=== PATIENT | female | born 1965 | race Caucasian/White ===

== ENCOUNTER 2018-01-22 08:15 | Observation (INO) | payer BC ==
[2018-01-22] MEDS ORDERED: Nitroglycerin 2% Ointment 1 INCH/1 GM Packet ONE (08:40)
[2018-01-22 08:58] LABS: #Basophils 0.1 thou/uL (0.0-0.2); #Eosinphils 0.1 thou/uL (0.0-0.7); #Lymphocytes 1.4 thou/uL (1.20-3.40); #Monocytes 0.6 thou/uL (0.11-0.59); #Neutrophils 4.4 thou/uL (1.40-6.50); %Eosinophils 1.9 % (0.0-10.0); %Lymphocytes 21.4 % (21.0-51.0); %Monocytes 8.7 % (0.0-10.0); %Neutrophils 67.1 % (42.0-75.0); Hemoglobin 13.3 g/dL (12.0-16.0); Mean Corpuscular Hemoglobin 30.1 pg (27.0-31.0); Mean Corpuscular Volume 85.9 fl (81.0-99.0); Platelet Count 200 thou/uL (130-400); RBC Distribution Width 11.4 % (11.5-14.5); Red Blood Cell (RBC) Count 4.41 mill/uL (4.20-5.40); White Blood Cell (WBC) Count 6.5 thou/uL (4.8-10.8)
[2018-01-22 09:02] LABS: PTT 32.6 SEC (22.9-36.1); Prothrombin Time 12.9 SEC (12.0-14.7)
[2018-01-22 09:08] LABS: ALT (SGPT) 14 U/L (8-55); AST (SGOT) 21 U/L (5-34); Albumin 4.4 g/dL (3.5-5.0); Alkaline Phosphatase 64 U/L (40-150); Anion Gap 13 mmol/L (10-20); BUN (Urea Nitrogen) 18 mg/dL (7.0-18.7); Bilirubin, Total 0.6 mg/dL (0.2-1.2); CK (CPK) 134 U/L (29-168); CKMB 1.9 ng/mL (0-6.6); Calc. Creatinine Clearance 0 mL/min (70-130); Calcium 9.7 mg/dL (7.8-10.44); Carbon Dioxide 28 mmol/L (22-29); Chloride 105 mmol/L (98-107); Estimated GFR-MDRD 67; Globulin 2.7 g/dL (2.4-3.5); Glucose 96 mg/dL (70-105); Lipase 88 U/L (8-78); Potassium 3.7 mmol/L (3.5-5.1); Protein, Total 7.1 g/dL (6.0-8.3); Sodium 142 mmol/L (136-145); Troponin I Less than 0.010 ng/mL (< 0.028)
--- NOTE | 2018-01-22 09:16 | RAD ---
CHEST ONE VIEW: History: Chest pain. Comparison: 02-03-13 FINDINGS: Cardiac silhouette and pulmonary vasculature are unremarkable. Mediastinum is midline. No lobar conso lidation or evidence of pneumothorax. compensation agent leads overlie the chest. IMPRESSION: No active cardiopulmonary abnormalities are demonstrated. POS: [facility]
[2018-01-22] MEDS ORDERED: Acetaminophen 325 MG TAB ONE (09:20)
[2018-01-22] MEDS ORDERED: Ondansetron HCl/PF 4 MG/2 ML Vial ONE (10:04)
[2018-01-22 12:13] VITALS: BMI 21.7
[2018-01-22] MEDS ORDERED: Mag-Al 1200 mg/1200 mg/30 ML UDCUP PO PRN (15:09)
[2018-01-22] MEDS ORDERED: Nitroglycerin 0.4 MG TAB (25 Tab Bottle) PO PRN (15:09)
[2018-01-22] MEDS ORDERED: Acetaminophen 325 MG TAB PO PRN (15:09)
[2018-01-22] MEDS ORDERED: Morphine 4 MG/ML VIAL SLOW IVP PRN ×2 (15:10)
--- NOTE | 2018-01-22 15:31 | HP ---
PRIMARY CARE PHYSICIAN: Dr. Mcguire. CHIEF COMPLAINT: Chest pain. HISTORY OF PRESENT ILLNESS: Ms. Favian Sher is a pleasant 52-year-old female that has a histor y of coronary artery disease. She was diagnosed with a myocardial infarction in 2011. 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 She says it was a squeezing like pain and at its worst it was a 6/10. She says it radiated into her left arm and also she was nauseated a nd was sweating. She says that she went inside and tried to sit down and rest for a minute, but it d id not get better. She told her she generally was not feeling well and in fact, she had trie d to go to work initially, but then the pain got worse and she decided that she better go to the [facility] room for evaluation. She was given nitroglycerin and morphine in the ER, which helped the pain for a while, but she says while she was waiting in the ER after about an hour or so, the pain starte d to return and she is being transferred to our facility for further evaluation. REVIEW OF SYSTEMS: Constitutional: There have been no fevers, chills, no night sweats, no weight lo ss. HEENT: There is no headache, no dizziness, no visual changes, no sore throat, rhinorrhea, neck pain, no adenopathy. Pulmonary: No hemoptysis, no cough, no wheezing. Cardiovascular: As the history of present illness. She denies any palpitations, no PND, nor orthopn ea. Gastrointestinal: No abdominal pain, but she has had some nausea, but no vomiting, no change in bowels. Genitourinary: No urinary frequency, hematuria, no hesitancy. Neurologic: No focal weakn ess, numbness, no seizures. Psychiatric: No symptoms of anxiety or depression. Skin and Integument : No skin changes. No rash. PAST MEDICAL HISTORY: Significant for coronary artery disease. PAST SURGICAL HISTORY: She has had a lumpectomy for benign breast lesion on the left and she has als o had a coronary stent placed. ALLERGIES: No known drug allergies. SOCIAL HISTORY: She is . She is a nonsmoker, nondrinker, denies any drug use. FAMILY HISTORY: Significant for coronary artery disease. MEDICATIONS: Include simvastatin 20 mg daily, aspirin 325 mg a day. PHYSICAL EXAMINATION: GENERAL: She is alert and oriented. She appears to be in no acute distress. VITAL SIGNS: Blood pressure was 120/80, heart rate 55, respiratory rate is 16, temperature is 98.8. HEENT: Pupils are equal, round, and reactive. Extraocular muscles are intact. Sclerae are anicteri c. Throat no erythema, no exudates. NECK: No adenopathy, no bruits. LUNGS: Clear to auscultation. There is no wheezing, no rales. CARDIOVASCULAR: She has a normal S1, S2. There is no S3 or S4. No murmurs, clicks or rubs. ABDOMEN: Soft, it is nontender, nondistended. Positive for bowel sounds. There is no rebound, no g uarding. EXTREMITIES: There is no clubbing, cyanosis, no edema. NEUROLOGICALLY: The exam is nonfocal. SIGNIFICANT LABORATORY RESULTS: Sodium is 142, potassium 3.7, chloride is 105, CO2 is 28, BUN of 18, creatinine 0.89, glucose is 96. White blood cell count 6.5, hemoglobin 13.3, hematocrit is 37.9, pl atelet count is 200. INR is 1.1. Lipase was 88. Initial troponin is 0.10. The second is 0.050. IMAGING: Her EKG is sinus rhythm, the rate is 60. She had a slightly prolonged QT interval. ASSESSMENT AND PLAN: This is a 52-year-old female that presents to the emergency room with chest tomasa n, which she says is very similar to what she has had in the past when she had a myocardial infarctio n. She cannot remember the intensity of the pain before, but this time, it was fairly intense that s he felt she needed an urgent medical attention. She is therefore being placed in observation. We wi ll get three sets of cardiac enzymes to rule her out and place her on aspirin and nitrates. Beta blo ckers will be held as her heart rate is already low in the 50s and get an exercise Cardiolite test an d also consult her employee development specialist for further recommendations as well.
[2018-01-22] MEDS ORDERED: Nitroglycerin 2% Ointment 1 INCH/1 GM Packet TOP SCH ×2 (17:00→18:00)
[2018-01-22] MEDS ORDERED: Communication Order-Pharmacy FS SCH (17:15)
[2018-01-22] MEDS: Sodium Chloride 0.9% 1,000 ML IV SCH (17:58)
[2018-01-22] MEDS ORDERED: Enoxaparin Sodium 80 MG/0.8 ML SYRINGE SC SCH (18:00)
[2018-01-22] MEDS ORDERED: Clopidogrel Bisulfate 300 MG TAB PO SCH (18:00)
[2018-01-22] MEDS: Nitroglycerin 2% Ointment 1 INCH/1 GM Packet TOP SCH (18:06)
[2018-01-22] MEDS ORDERED: Atorvastatin Calcium 10 MG TAB PO SCH (21:00)
--- NOTE | 2018-01-22 22:07 | CON ---
DATE OF CONSULTATION: 01/22/2018 HISTORY: Nayana Sher is a 52-year-old white female that initially evaluated in 12/2011. She denied any significant chest discomfort prior to that. She had been working out on an elliptical at [employer], when she began to notice central chest pressure associated with shortness of breath. She had some nausea with that and was already diaphoretic from exercising. Her discomfort did not seem to respond when she rested and a friend took her to [facility] Emergency Room. She was given sublingual nitroglycerin as well as morphine and her pain improved. She was then transferred to [facility] and was given 2 more mg of morphine and her pain resolved. Initial cardiac enzymes were normal; however, the second set was abnormal and then I saw her for evaluation. She developed CK-MB of 88.2, troponin I of 33.864. The morning after admission , she underwent cardiac catheterization which revealed mild distal inferior wall hypokinesis with ejection fraction of 50%-55%. There was plaquing of the mid LAD, but no significant stenosis. The ramus had a 95% distal lesion. The remainder of coronary arteries was normal. She underwent placement of Promus 2.25 x 20 mm stent in the distal ramus. With balloon inflation, she had the same type chest discomfort that she has been having while exercising on the elliptical. She also had nonsustained ventricular tachycardia during the first 24 hours after admission, and she was therefore observed for several days. She did not have recurrence of the nonsustained ventricular tachycardia after the initial 24 hours. On echo, she had ejection fraction of 50%-55% with moderate tricuspid regurgitation, mild mitral regurgitation, and a small patent foramen ovale. Her LDL was 76 and she was placed on low-dose simvastatin. She then was able to excise on the elliptical for 20-30 minutes without chest discomfort. She was readmitted in 01/2013, when she began to have pressure on the left side of her chest that was possibly pleuritic in nature. After 1 hour , she took sublingual nitroglycerin. She ultimately fell asleep and awoke at 2 in the morning with same type of discomfort and stayed awake most of the night with the discomfort. She then went to [facility] and was transferred here for further evaluation. Cardiac enzymes were unremarkable and she underwent Cardiolite testing, which revealed no evidence of ischemia, it was normal. She did seem to have palpable chest wall tenderness during that admission. Since that time, she has done well without any significant problems. She was returned to occasional jogging without chest discomfort. With history of nonsustained ventricular tachycardia, I did try to keep on very low-dose metoprolol; however, she would become lightheaded with that and ultimately stopped taking it. In general, her LDL has been under good control. Yesterday, she stated that she jogged without any problems. She then was going to take her daughter to a doctor's appointment this morning and when she was walking out to the car, carrying her purse and laptop computer, she developed central chest pressure. This was associated with shortness of breath, mild nausea. She went back inside and this seemed to subside after 10-15 minutes. She then went to drive her daughter to the appointment and had more intense episode and went to [facility]. She was given sublingual nitroglycerin as well as morphine and her pain resolved. She got up to go the bathroom and again had the same discomfort, received intravenous morphine, and intravenous Zofran with resolution of her symptoms. EKG was normal. She now is transferred here and has had another episode when she tried to get up to go to the bathroom. Each episode would last approximately 15-20 minutes. PAST MEDICAL HISTORY: Mild hyperlipidemia. No history of hypertension or diabetes. She has history of non-ST elevation myocardial infarction. OPERATIONS: Benign breast lumpectomy. [facility], 2011. MEDICATIONS: At home include; aspirin 325 daily, multivitamin daily, simvastatin 20 at bedtime. ALLERGIES: None. SOCIAL HISTORY: She has never smoked. She does not drink. 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 FAMILY HISTORY: Negative for myocardial infarction, CABG, or sudden . REVIEW OF SYSTEMS: Twelve-point review of systems otherwise unremarkable. PHYSICAL EXAMINATION: VITAL SIGNS: 112/72, pulse of 68. HEENT: PERRL. NECK: Supple. CHEST: Clear. ABDOMEN: Normal bowel sounds without tenderness. EXTREMITIES: Revealed no clubbing, cyanosis, or edema. NEUROLOGIC: Grossly intact. SKIN: Warm and dry. MUSCULOSKELETAL: Revealed no palpable chest wall tenderness. LABORATORY DATA: EKG reveals normal sinus rhythm and is normal. Hemoglobin 13.3, hematocrit 37.9, white count 6500, platelets 200,000. INR 1.0. Sodium 142, potassium 3.7, chloride 105, carbon dioxide 28, BUN 18, creatinine 0.89. Troponin I was less than 0.010, 0.050, and 0.030. IMPRESSION: 1. Probable acute coronary syndrome with increased episodes of chest discomfort seemed to be brought on by exertion, although she jogged last night without chest pain. 2. History of non-ST elevation myocardial infarction in 12/2011 with placement of drug-eluting stent in the ramus. 3. Mild hypercholesterolemia. PLAN: Situation was discussed with the patient. With her continued chest discomfort, I feel she should undergo cardiac catheterization. She will be given Lovenox 1 mg/kg, topical nitrates will be increased and she will be given Plavix 600 mg followed by 75 mg per day. She undergo cardiac catheterization in the morning. Risks were discussed including , myocardial infarction, dye reaction, vascular injury, CVA, transfusion, limb loss, renal loss, etc. Also, risk of intervention with PTCA and stent placement were discussed including , myocardial infarction, emergent CABG, restenosis, stent thrombosis, vessel perforation, etc. She tolerated Plavix when she had a previous drug-eluting stent placed and does not have any upcoming surgery schedule. Therefore, a drug-eluting stent will be placed if needed. SIRIA
[2018-01-23] MEDS: Nitroglycerin 2% Ointment 1 INCH/1 GM Packet TOP SCH ×2 (00:50→06:20)
[2018-01-23] MEDS: Sodium Chloride 0.9% 1,000 ML IV SCH (03:54)
[2018-01-23 05:12] LABS: Anion Gap 11 mmol/L (10-20); BUN (Urea Nitrogen) 10 mg/dL (7.0-18.7); Calc. Creatinine Clearance 100 mL/min (70-130); Calcium 8.6 mg/dL (7.8-10.44); Carbon Dioxide 26 mmol/L (22-29); Cardiac Risk 2.4 (Less than 4.5); Chloride 107 mmol/L (98-107); Cholesterol 117 mg/dl (< 200 Desired); Estimated GFR-MDRD 84; Glucose 96 mg/dL (70-105); HDL Cholesterol 49 mg/dL (>60 Neg Risk); LDL Cholesterol, Calculated 55 mg/dL; Potassium 3.5 mmol/L (3.5-5.1); Sodium 140 mmol/L (136-145); Triglycerides 67 mg/dL (Less than 150)
[2018-01-23] MEDS ORDERED: Lidocaine 1% (PF) 30 ML VIAL ONE (06:39)
[2018-01-23] MEDS ORDERED: Fentanyl 100 MCG/2 ML VIAL ONE (07:03)
[2018-01-23] MEDS ORDERED: Midazolam HCl 2 mg/2 ml Vial ONE (07:03)
[2018-01-23] MEDS ORDERED: Heparin 10,000 UNITS/1 ML VIAL ONE (07:03)
[2018-01-23] MEDS ORDERED: Nitroglycerin 0.4 MG TAB (25 Tab Bottle) SL PRN (07:55)
[2018-01-23] MEDS ORDERED: Acetaminophen/Codeine 30-300mg Tablet PO PRN ×2 (07:55)
[2018-01-23] MEDS ORDERED: Sodium Chloride 0.9% 1,000 ML IV SCH (07:56)
[2018-01-23] MEDS ORDERED: Sodium Chloride 0.9% 200 ML IV SCH (08:00)
[2018-01-23] MEDS ORDERED: Aspirin 325 MG TAB PO SCH (09:00)
[2018-01-23] MEDS ORDERED: Clopidogrel Bisulfate 75 MG TAB PO SCH (09:00)
[2018-01-23] MEDS ORDERED: Enoxaparin Sodium 40 MG/0.4 ML SYRINGE SC SCH (09:00)
[2018-01-23] MEDS ORDERED: Multivit, Therapeutic 1 TAB PO SCH (09:00)
[2018-01-23] MEDS ORDERED: Iopamidol 370 76% 50 ML VIAL FS ONE (10:13)
[2018-01-23] MEDS ORDERED: Iopamidol 370 76% 100 ML VIAL ONE (10:13)
[2018-01-23 12:11] VITALS: BP 111/73; TEMP 98.4
--- NOTE | 2018-01-23 12:33 | PDOC.PN ---
- Subjective Encounter Start Date: 01/23/18 Encounter Start Time: 12:31 Ms. Ballesteros was seen today in follow-up. She is complaining of a headache. otherwise no complaints. - Objective Resuscitation Status: Resuscitation Status FULL:Full Resuscitation MAR Reviewed: Yes Vital Signs & Weight: Vital Signs (12 hours) Temp Pulse Resp BP Pulse Ox 01/23/18 12:00 98.4 F 56 L 16 111/73 96 01/23/18 08:08 98.1 F 56 L 20 01/23/18 07:58 98.1 F 56 L 20 107/71 94 L 01/23/18 03:29 97.7 F 60 18 117/68 96 Weight Weight 152 lb 1.6 oz I&O: 01/22/18 01/23/18 01/24/18 06:59 06:59 06:59 Intake Total 2215 Output Total 500 Balance 2215 -500 Result Diagrams: 01/22/18 08:42 01/23/18 04:35 Phys Exam - Physical Examination HEENT: PERRLA Respiratory: no wheezing, no rales, no rhonchi, clear to auscultation bilateral Cardiovascular: RRR, no significant murmur, no rub Gastrointestinal: soft, non-tender, positive bowel sounds Musculoskeletal: no edema Dx/Plan (1) Chest pain of uncertain etiology Code(s): R07.89 - OTHER CHEST PAIN Status: Acute (2) CAD (coronary artery disease) Code(s): I25.10 - ATHSCL HEART DISEASE OF [place] CORONARY ARTERY W/O ANG PCTRS Status: Acute - Plan * Chest pain- ? etiology- discussed with Dr. Forrest. He does not feel it was coronary spasm * Abdominal ultrasound was noted * Home when off bed rest, and close follow-up with Dr. Mcguire.
--- NOTE | 2018-01-23 13:07 | ULT ---
SONOGRAM RIGHT UPPER QUADRANT: Date: 01/23/18 HISTORY: Abdominal pain. FINDINGS: Gallbladder has a normal appearance without evidence of stones. Common duct is 0.5 cm. Liver is unrem arkable without focal mass or intrahepatic biliary dilatation. No free fluid. IMPRESSION: No evidence of gallstones or biliary obstruction. POS: [facility]
--- NOTE | 2018-01-23 18:50 | DIS ---
DATE OF ADMISSION: 01/22/2018 DATE OF DISCHARGE: 01/23/2018 PRIMARY CARE PHYSICIAN: Marychuy Mcguire M.D. DISCHARGE DISPOSITION: Home. PRIMARY DISCHARGE DIAGNOSES: 1. Chest pain, etiology is unknown. 2. History of coronary artery disease. DISCHARGE MEDICATIONS: Include Imdur extended release 30 mg daily, aspirin 325 mg daily, multivitami n once a day, and simvastatin 20 mg at bedtime. PROCEDURES DONE DURING ADMISSION: The patient had a cardiac catheterization in which there was mild coronary artery disease noted. The LV function was normal. The patient also had an abdominal ultras ound, which was negative for any gallstones and the liver and the biliary duct were within normal barrera its. CODE STATUS: FULL CODE. ALLERGIES: No known drug allergies. HOSPITAL COURSE: Ms. Favian Sher is a 52-year-old female who presented to the emergency room w ith complaints of chest pain. She says it was very similar to what she has had when she had a myocar dial infarction a few years ago. She was placed in observation and ruled out. She was seen by her c ardiologist and underwent cardiac catheterization. There was no new coronary artery disease found. However, she was placed on Imdur. She will be referred back to her primary care physician possibly t o have a GI evaluation. As previously mentioned, there was no evidence of any stones in the gallblad mao. Otherwise, besides the addition of the Imdur, her medications will remain the same.
== END 2018-01-23 14:59 | disposition home or self-care (01) ==
LOC: SCSER 08:15 → 2SW 12:01
PROVIDERS: ADMIT Internal Medicine; ATTEND Internal Medicine
PROC: 4A023N7 Measurement of Cardiac Sampling and Pressure, Left Heart, Percutaneous Approach (ICD-10-PCS; principal; 2018-01-23)
PROC: B2151ZZ Fluoroscopy of Left Heart using Low Osmolar Contrast (ICD-10-PCS; 2018-01-23)
DX: R07.9 Chest pain, unspecified (principal); I25.10 Atherosclerotic heart disease of native coronary artery without angina pectoris; I25.2 Old myocardial infarction; E78.5 Hyperlipidemia, unspecified; E78.00 Pure hypercholesterolemia, unspecified; Z79.82 Long term (current) use of aspirin; Z79.899 Other long term (current) drug therapy; Z95.5 Presence of coronary angioplasty implant and graft
CPT/HCPCS: 36415; 71045; 76705; 80048; 80053; 80061; 82550; 82553; 83690; 84484; 85025; 85347; 85610; 85730; 93005; 93458; 94760; 96361; 96372; 96374; 96375; 96376; 99152; C1769; G0378; J1644; J1650; J2001; J2250; J2270; J2405; J3010

== ENCOUNTER 2019-02-18 14:06 | Outpatient (CLI) | payer BC ==
--- NOTE | 2019-02-18 14:52 | MMO ---
Bilateral MAMMO Bilat Screen [facility]. CLINICAL HISTORY: Patient is 53 years old and is seen for screening. The patient has the following family history of breast cancer: maternal grandmother. The patient has no personal history of cancer. The patient has a history of left Excisional Biopsy in December, - benign. VIEWS: The views performed were: bilateral craniocaudal with tomosynthesis and bilateral mediolateral oblique with tomosynthesis. FILMS COMPARED: The present examination has been compared to prior imaging studies performed at [facility] on 11/28/2010, 12/18/2011, 01/06/2014, 04/25/2015 and 11/16/2016. MAMMOGRAM FINDINGS: The breasts are heterogeneously dense, which could obscure a lesion on mammography. There are no suspicious masses, suspicious calcifications, or new areas of architectural distortion. IMPRESSION: THERE IS NO MAMMOGRAPHIC EVIDENCE OF MALIGNANCY. A ROUTINE FOLLOW-UP MAMMOGRAM IN 1 YEAR IS RECOMMENDED. THE RESULTS OF THIS EXAM WERE SENT TO THE PATIENT. ACR BI-RADS Category 1 - Negative MAMMOGRAPHY NOTE: 1. A negative mammogram report should not delay a biopsy if a dominant of clinically suspicious mass is present. 2. Approximately 10% to 15% of breast cancers are not detected by mammography. 3. Adenosis and dense breasts may obscure an underlying neoplasm.
--- NOTE | 2019-02-18 15:05 | BD ---
EXAM: DEXA bone density examination HISTORY: 53-year-old postmenopausal female for screening COMPARISON: None FINDINGS: L1--bone mineral density 0.847 g/sq cm; T score -1.3 L2--bone mineral density 0.966 g/sq cm; T score -0.6 L3--bone mineral density 0.932 g/sq cm; T score -1.4 L4--bone mineral density 0.914 g/sq cm; T score -1.3 Total L1-L4--bone mineral density 0.917 g/sq cm; T score -1.2 Left femoral neck--bone mineral density0.708; T score -1.3 Total proximal left femur--bone mineral density 0.891; T score -0.4 IMPRESSION: Osteopenia This patient has a 10 year WHO fracture risk of a major osteoporotic fracture of 4.8% and of a hip fracture of 0.3%.
== END 2019-02-18 14:07 | disposition home or self-care (01) ==
LOC: BICMAMMO 14:06
PROVIDERS: ATTEND Internal Medicine
DX: Z12.31 Encounter for screening mammogram for malignant neoplasm of breast (principal); M85.89 Other specified disorders of bone density and structure, multiple sites; Z80.3 Family history of malignant neoplasm of breast
CPT/HCPCS: 77063; 77067; 77080

== ENCOUNTER 2019-02-20 07:02 | Outpatient (CLI) | payer BC, OTHER ==
--- NOTE | 2019-02-20 08:40 | ULT ---
RIGHT UPPER QUADRANT ULTRASOUND: Date: 02/20/19 INDICATION: Right upper quadrant pain. FINDINGS: Liver appears unremarkable. Gallbladder is distended. No evidence of gallstones. Common bile is dilat ed, measuring 8 mm. There is a hypoechoic mass in the region of the pancreatic head which measures 3 cm in diameter. Body and tail of pancreas obscured. Right kidney is imaged and appears unremarkable. IMPRESSION: 1. 3 cm hypoechoic mass involving the pancreatic head. Further evaluation with CT abdomen with contr ast following pancreatic protocol is recommended. 2. Gallbladder is distended and common bile duct is dilated. No evidence of gallstones. POS: [facility]
--- NOTE | 2019-02-20 10:58 | CT ---
CT abdomen and pelvis with and without IV contrast. Oral contrast was administered. INDICATIONS: Follow-up evidence of a pancreatic mass noted on abdominal ultrasound exam. COMPARISON: None FINDINGS: Lung bases are clear Noncontrast CT abdomen pelvis reveals no evidence of abnormal calcification within the pancreas or ur inary tract. Soft tissue mass density involving the pancreatic head is better delineated on postcontrast exam. Postcontrast CT: Liver reveals mild intrahepatic biliary duct dilatation. There is dilatation of the extra hepatic com mon bile duct. There is gallbladder distention which was noted on ultrasound. There is a low density mass involving the head of the pancreas which measures up to 3.0 cm AP dimensi on. This is not cystic and appears to represent a soft tissue mass. Neoplasm is the primary consideration. Spleen unremarkable Small sliding diaphragmatic hernia. Stomach and duodenum otherwise unremarkable. Adrenal glands appear normal. Kidneys show crossed fused ectopia consistent with a horseshoe kidney. Tiny cystic lesion in the righ t renal cortex. No hydronephrosis. Urinary bladder unremarkable Small bowel loops are normal caliber and exhibit normal fold pattern. Appendix is identified and appears unremarkable. Colon is unremarkable. Aorta is normal caliber. No evidence of retroperitoneal or mesenteric adenopathy. Uterus and adnexa unremarkable. There is an IUD in the endometrial cavity. Subcutaneous tissues, abdominal wall, and muscular structures appear unremarkable. Osseous structures appear unremarkable. IMPRESSION: 1. Soft tissue mass involving the head of the pancreas measuring up to 3.0 cm. Secondary intra and ex trahepatic biliary duct dilatation with gallbladder distention. 2. Horseshoe kidney
[2019-02-20] MEDS ORDERED: Iopamidol 370 76% 50 ML VIAL FS ONE (11:00)
[2019-02-20] MEDS ORDERED: Iopamidol 370 76% 100 ML VIAL ONE (11:00)
== END 2019-02-20 07:03 | disposition home or self-care (01) ==
LOC: ULT 07:02 → CT 07:03
PROVIDERS: ATTEND Internal Medicine
DX: K86.9 Disease of pancreas, unspecified (principal); R10.13 Epigastric pain; R94.5 Abnormal results of liver function studies; R11.2 Nausea with vomiting, unspecified; K82.8 Other specified diseases of gallbladder; Q63.1 Lobulated, fused and horseshoe kidney
CPT/HCPCS: 74178; 76705; Q9967

== ENCOUNTER 2019-03-17 21:04 | Emergency (ER) | payer BC ==
[~2019-03-17 21:04] MED LIST: Iopamidol 300 61% 100 ML VIAL FS ONE
[2019-03-17] MEDS ORDERED: Ondansetron PF 4 MG/2 ML Vial ONE (21:44)
[2019-03-17] MEDS ORDERED: Acetaminophen 500 MG TAB ONE (21:44)
[2019-03-17 21:51] LABS: #Eosinphils 0.1 thou/uL (0.0-0.7); #Lymphocytes 0.4 thou/uL (1.20-3.40); #Monocytes 0.6 thou/uL (0.11-0.59); #Neutrophils 8.1 thou/uL (1.40-6.50); %Basophils 0.5 % (0.0-1.0); %Eosinophils 1.4 % (0.0-10.0); %Lymphocytes 3.9 % (21.0-51.0); %Monocytes 6.7 % (0.0-10.0); %Neutrophils 87.5 % (42.0-75.0); Hemoglobin 11.7 g/dL (12.0-16.0); Mean Corpuscular HGB CONC 33.5 g/dL (32.0-36.0); Mean Corpuscular Hemoglobin 29.2 pg (27.0-31.0); Mean Corpuscular Volume 87.1 fL (78.0-98.0); Mean Platelet Volume 8.1 fL (7.4-10.4); Platelet Count 252 thou/uL (130-400); RBC Distribution Width 12.4 % (11.5-14.5); White Blood Cell (WBC) Count 9.3 thou/uL (4.8-10.8)
--- NOTE | 2019-03-17 21:59 | RAD ---
EXAM: Single view of the chest HISTORY: Fever COMPARISON: 01/22/2018 FINDINGS: Single view of the chest shows a normal sized cardiomediastinal silhouette. There is no jose g dence of consolidation, mass, or pleural effusion. The bones are unremarkable. IMPRESSION: No evidence of acute cardiopulmonary disease
[2019-03-17 22:05] LABS: ALT (SGPT) 458 U/L (8-55); AST (SGOT) 563 U/L (5-34); Albumin 3.9 g/dL (3.5-5.0); Alkaline Phosphatase 526 U/L (40-150); Anion Gap 14 mmol/L (10-20); BUN (Urea Nitrogen) 11 mg/dL (9.8-20.1); Bilirubin, Total 2.2 mg/dL (0.2-1.2); Calc. Creatinine Clearance 0 mL/min (70-130); Calcium 9.6 mg/dL (7.8-10.44); Carbon Dioxide 23 mmol/L (22-29); Chloride 106 mmol/L (98-107); Estimated GFR-MDRD 83; Globulin 3.2 g/dL (2.4-3.5); Glucose 118 mg/dL (70-105); Lipase 491 U/L (8-78); Potassium 3.7 mmol/L (3.5-5.1); Protein, Total 7.1 g/dL (6.0-8.3); Sodium 139 mmol/L (136-145)
[2019-03-17 22:05] LABS: Bilirubin Small (Negative); Blood, Urine Trace (Negative); Clarity Clear (Clear); Glucose, Urine (Dipstick) Negative (Negative); Leukocyte Negative (Negative); Nitrite Negative (Negative); Protein, Urine (Dipstick) Negative (Neg-Trace); Specific Gravity, Urine 1.015 (1.005-1.030); Urobilinogen 0.2 mg/dL (0.2-1.0); pH, Urine 7.5 (5.0-9.0)
[2019-03-17 22:15] LABS: Bacteria/HPF None Seen HPF (None Seen); Hyaline Casts/LPF NONE SEEN LPF (0-3 Hyaline); RBC/HPF 0-3 HPF (0-3); Squamous Epithelial 0-3 HPF (0-3); WBC/HPF 0-3 HPF (0-3)
--- NOTE | 2019-03-17 23:57 | CT ---
CLINICAL INFORMATION: Pancreatic cancer status post stent placement on 03/06/2019. Fever that began 4 days ago. COMPARISON: 02/20/2019 TECHNIQUE: Multiple contiguous axial images were obtained and a CT of the abdomen and pelvis without and with IV contrast. Oral contrast was administered. Coronal reformats were performed. FINDINGS: Lower Chest: within normal limits. Abdomen: Liver: within normal limits. Bile Ducts: The common bile duct is enlarged measuring 14 mm. There is central intrahepatic biliary d ilatation and foci of air within the central intrahepatic biliary tree. The biliary dilatation is stable compared to the prior CT. Gallbladder: No calcified gallstones. Normal caliber wall. Pancreas: A masslike region is seen in the pancreatic head measuring 3.5 cm in size.. A common bile d uct stent is seen. Some of the oral contrast administered extends into the stent. Spleen: within normal limits. Adrenals: within normal limits. Kidneys: Horseshoe kidney without hydronephrosis or calculi Pelvis: Reproductive Organs: IUD in the uterus. Ureters: within normal limits. Bladder: within normal limits. Peritoneum: No ascites or free air, no fluid collection. Bowel: Scattered diverticula in the sigmoid colon. Mesentery and Retroperitoneum: No enlarged mesenteric or retroperitoneal lymph nodes. Vessels: Normal. Abdominal Wall: within normal limits. Bones: Within normal limits IMPRESSION: 1. Pancreatic mass with appropriate position of common bile duct stent. 2. Horseshoe kidney 3. Diverticulosis
== END 2019-03-18 00:35 | disposition home or self-care (01) ==
LOC: SCSER 21:04
DX: R10.11 Right upper quadrant pain (principal); R50.9 Fever, unspecified; F41.9 Anxiety disorder, unspecified; I25.2 Old myocardial infarction; Z79.82 Long term (current) use of aspirin; Z79.899 Other long term (current) drug therapy
CPT/HCPCS: 36415; 71045; 74177; 80053; 81003; 81015; 83605; 83690; 85025; 87040; 87086; 96361; 96374; J2405; Q9967